=== PATIENT | female | born 1995 | race Caucasian/White ===

== ENCOUNTER 2022-10-13 20:50 | Emergency (ER) | payer OTHER ==
[2022-10-13] MEDS ORDERED: Nitrofurantoin Monohydrate/Macrocrystalline 100 MG Cap PO ONE (23:59)
== END 2022-10-14 00:12 | disposition home or self-care (01) ==
LOC: JD.ED 20:50
DX: N39.0 Urinary tract infection, site not specified (principal); R31.9 Hematuria, unspecified; Z88.2 Allergy status to sulfonamides
CPT/HCPCS: 36415; 80053; 81001; 81025; 85025; 87086; 99284; A9270